=== PATIENT | female | born 1990 | race Two or more races ===

== ENCOUNTER 2021-01-15 12:24 | Emergency (ER) | payer OTHER ==
[~2021-01-15] VITALS: Ht 157.5 cm; Wt 59.0 kg
[2021-01-15] MEDS ORDERED: DICLOFENAC POTA50 MG PO (15:47)
== END 2021-01-15 16:18 | disposition home or self-care (01) ==
LOC: ER 12:24
DX: M25.562 Pain in left knee (principal); S83.8X2S Sprain of other specified parts of left knee, sequela; X50.0XXS Overexertion from strenuous movement or load, sequela